=== PATIENT | female | born 1965 | race Hispanic/Latino ===

== ENCOUNTER 2020-02-23 17:29 | Inpatient (IN) | payer OTHER, SELFPAY ==
[~2020-02-23] VITALS: Ht 154.9 cm; Wt 78.6 kg
[2020-02-23 18:23] LABS: BASOPHILS % (AUTO) 0.2 % (0.0-5.0); HEMATOCRIT 36.6 % (36-48); LYMPHOCYTES % (AUTO) 16.7 % (21.0-51.0); MEAN CORPUSCULAR HEMOGLOBIN 18.2 pg (27.0-33.0); MEAN CORPUSCULAR HGB CONC 31.4 g/dL (32.0-36.0); MEAN CORPUSCULAR VOLUME 57.8 fL (79-99); MONOCYTES % (AUTO) 6.6 % (3.0-13.0); NEUTROPHILS % (AUTO) 75.6 % (40.0-77.0); NUCLEATED RED BLOOD CELLS 0.3 % (0.0-0.19); PLATELET COUNT (AUTO) 170 K/uL (130-400); RED BLOOD CELL COUNT(AUTO) 6.33 MIL/uL (4.00-5.50); WHITE BLOOD COUNT (AUTO) 10.1 K/uL (4.8-10.8)
[2020-02-23] MEDS ORDERED: ACETAMINOPHEN EXTRA STRENGTH 500 MG TABLET ONE (18:23)
[2020-02-23] MEDS ORDERED: ASPIRIN 325 MG TABLET ONE (18:23)
[2020-02-23 18:31] LABS: INR 1.08 (0.85-1.15); PARTIAL THROMBOPLASTIN TIME 31.3 SEC (26.3-35.5); PROTHROMBIN TIME 11.6 SEC (9.6-11.6)
[2020-02-23 18:45] LABS: ALBUMIN 2.9 g/dL (3.5-5.0); BILIRUBIN,TOTAL 0.8 mg/dL (0.2-1.0); CREATININE 0.9 mg/dL (0.5-1.5); CRP QUANTITATIVE 176.2 mg/L (0.00-9.0); TOTAL PROTEIN, SERUM 8.2 g/dL (6.0-8.3)
[2020-02-23 18:47] LABS: POTASSIUM 2.9 mmol/L (3.5-5.1)
[2020-02-23] MEDS ORDERED: AZITHROMYCIN 500MG+NS 250ML 250 ML IV ONE ×2 (18:51→18:56)
[2020-02-23 18:56] LABS: B-TYPE NATRIURETIC PEPTIDE 15 pg/mL (0-100)
[2020-02-23 19:05] LABS: FERRITIN 355 ng/mL (15-150)
[2020-02-23] MEDS ORDERED: CEFTRIAXONE SODIUM 1 GM ONE (19:35)
[2020-02-23] MEDS ORDERED: POTASSIUM BICARB/CIT AC 25 MEQ TABLET.EFF ONE (19:35)
[2020-02-23] MEDS ORDERED: INSULIN HUMULIN R 100 UNIT/ML 3ML ONE (19:37)
[2020-02-23] MEDS: SODIUM CHLORIDE 0.9% 1000ML 1,000 ML IV SCH (20:20)
[2020-02-23] MEDS: AZITHROMYCIN 500MG+NS 250ML 250 ML IV SCH (20:30)
[2020-02-23] MEDS ORDERED: POTASSIUM CHLORIDE 10MEQ/100ML 100 ML IV PRN (20:30)
[2020-02-23] MEDS ORDERED: POTASSIUM CHLORIDE 10% ELIXIR 20 MEQ/15 ML UDCUP PO PRN (20:30)
[2020-02-23] MEDS ORDERED: ALBUTEROL INHALER 90MCG/INH IH PRN (20:30)
[2020-02-23] MEDS ORDERED: LIDOCAINE HCL-MPF 1% 2ML VIAL IV PRN (20:30)
[2020-02-23] MEDS ORDERED: LACTULOSE 20 GM/30 ML UDCUP PO PRN (20:30)
[2020-02-23] MEDS ORDERED: MORPHINE SULFATE 2 MG/ML 1ML SYG IV PRN (20:30)
[2020-02-23] MEDS ORDERED: ACETAMINOPHEN 325 MG TAB PO PRN ×2 (20:30)
[2020-02-23] MEDS ORDERED: HYDRALAZINE HCL 20 MG/ML VIAL IV PRN (20:30)
[2020-02-23] MEDS: CEFTRIAXONE SODIUM 1 GM IV SCH (20:30)
[2020-02-23] MEDS ORDERED: ONDANSETRON HCL 4 MG/2 ML VIAL IV PRN (20:30)
[2020-02-23 20:51] LABS: HEMOGLOBIN A1C 11.2 % (4.0-6.0)
[2020-02-23] MEDS: FAMOTIDINE 20MG TAB 20 MG TAB PO SCH (21:00)
[2020-02-23] MEDS ORDERED: IOHEXOL-350 75 ML VIAL IV ONE (21:11)
[2020-02-23] MEDS ORDERED: ENOXAPARIN SODIUM 40 MG/0.4 ML SYRINGE SQ ONE (22:31)
[2020-02-23 23:27] LABS: APPEARANCE,URINE Clear (CLEAR); BILIRUBIN,URINE Negative (NEGATIVE); COLOR,URINE Yellow (YELLOW); GLUCOSE, URINE (UA) >=1000 mg/dL (NEGATIVE); KETONES,URINE 15 mg/dL (NEGATIVE); LEUKOCYTE ESTERASE ,URINE Negative (NEGATIVE); NITRATE,URINE Negative (NEGATIVE); OCCULT BLOOD,URINE Trace (NEGATIVE); PH,URINE 6.5 (5.0-8.0); PROTEIN,URINE POS 1+ mg/dL (NEGATIVE)
[2020-02-23 23:37] LABS: BACTERIA,URINE Few /HPF (None Seen)
[2020-02-24] MEDS ORDERED: POTASSIUM CHLORIDE 10MEQ/100ML 100 ML IV ONE (03:30)
[2020-02-24] MEDS ORDERED: LIDOCAINE HCL 1% 20 ML VIAL ONE (03:30)
[2020-02-24] MEDS ORDERED: ACETAMINOPHEN 325 MG TAB ONE (04:06)
[2020-02-24 04:18] LABS: BASOPHILS % (AUTO) 0.2 % (0.0-5.0); EOSINOPHILS % (AUTO) 0.2 % (0.0-8.0); HEMATOCRIT 36.7 % (36-48); LYMPHOCYTES % (AUTO) 11.7 % (21.0-51.0); MEAN CORPUSCULAR HGB CONC 30.8 g/dL (32.0-36.0); MEAN CORPUSCULAR VOLUME 58.5 fL (79-99); MONOCYTES % (AUTO) 4.6 % (3.0-13.0); NEUTROPHILS % (AUTO) 82.7 % (40.0-77.0); PLATELET COUNT (AUTO) 149 K/uL (130-400); RED BLOOD CELL COUNT(AUTO) 6.27 MIL/uL (4.00-5.50); RED CELL DISTRIBUTION WIDTH 17.1 % (11.0-15.5); WHITE BLOOD COUNT (AUTO) 8.2 K/uL (4.8-10.8)
[2020-02-24 04:52] LABS: CREATININE 0.8 mg/dL (0.5-1.5); CRP QUANTITATIVE 167.3 mg/L (0.00-9.0); MAGNESIUM 2.4 mg/dL (1.80-2.40); POTASSIUM 3.1 mmol/L (3.5-5.1)
[2020-02-24 06:45] VITALS: BP 120/68
--- NOTE | 2020-02-24 06:45 | NUR ---
PT ARRIVED AT ROOM 220 VIA STRETCHER WITH TIERNEY LAZARO. PT WALKED TO BED. PT DENIES ANY PAIN. BE TO LOWEST LEVEL. CALL LIGHT WITHIN REACH. NO COUGH NOTED. AFEBRILE. ON ROOM AIR. PT STATED SHE DID NOT GET TESTED FOR COVID AT [facility]. PT DOES NOT REMEMBER DOCTORS NAME FROM [facility]. PT HAS NO PRIMARY PHYSICIAN, NO HOME MEDS, NO SURGICAL HISTORY, NO MEDICAL HISTORY.
[2020-02-24] MEDS ORDERED: INSULIN HUMULIN R 100 UNIT/ML 3ML SQ SCH (07:30)
[2020-02-24 08:46] VITALS: BP 116/62
[2020-02-24] MEDS: FAMOTIDINE 20MG TAB 20 MG TAB PO SCH ×2 (10:16→21:06)
[2020-02-24] MEDS: ENOXAPARIN SODIUM 40 MG/0.4 ML SYRINGE SQ SCH (10:17)
[2020-02-24] MEDS: INSULIN LISPRO 100 UNIT/ML 3ML SQ SCH ×5 (12:29→22:26)
[2020-02-24] MEDS: SODIUM CHLORIDE 0.9% 1000ML 1,000 ML IV SCH ×2 (12:31→16:20)
--- NOTE | 2020-02-24 12:59 | NUR ---
DC PLAN CALLED PATIENT ROOM. NO ANSWER. NO ADDITIONAL CONTACTS ON FACE SHEET. ASHLIE WILL CONTINUE TO FOLLOW. Addendum: 02/24/20 at 1301 by MICKIE SCHWARTZ RN CM Amended: Links added.
[2020-02-24 13:22] VITALS: BP 118/59
--- NOTE | 2020-02-24 13:32 | NUR ---
NUTRITION EDUCATION RD provided Diabetes Nutrition education via Phone conversation due to isolation protocol. RD discussed nutrition recommendations with Pt. Pt verbalized understanding. Nutrition education placed in Pt chart, RN notified. Addendum: 02/24/20 at [address] RD Amended: Links added.
--- NOTE | 2020-02-24 13:45 | NUR ---
RD NOTIFICATION Pt admitted with suspected COVID-19. RD notified for new onset Diabetes. Pt contacted via phone. Tolerating 75gm CCD with no report of GI distress, fair PO intake. Pt with Obesity Class I (BMI 32.7). Recommend continue 75gm CCD Recommend 30mL ProMod BID RD provided nutrition education via phone. Handouts placed in Pt chart. RN notified. RD to continue to monitor. Please notify as additional nutrition concerns arise. Thank you. Addendum: 02/24/20 at [address] RD Amended: Links added.
[2020-02-24] MEDS: POTASSIUM CHLORIDE 20 MEQ ERTAB PO PRN ×2 (13:50→21:07)
[2020-02-24 15:44] LABS: CREATININE 0.7 mg/dL (0.5-1.5)
[2020-02-24 15:49] LABS: POTASSIUM 2.9 mmol/L (3.5-5.1)
[2020-02-24 16:30] VITALS: BP 122/64
[2020-02-24] MEDS ORDERED: POTASSIUM CHLORIDE 20MEQ/100ML 100 ML IV ONE (18:03)
[2020-02-24 20:18] VITALS: BP 118/60
--- NOTE | 2020-02-24 21:00 | NUR ---
PT SHOWERED. POTASSIUM REPLACEMENT GIVEN. NO DISTRESS NOTED. AMBULATORY. STATES SHE WANTS TO GO HOME.ABLE TO TAKE MEDICATIONS WELL.
[2020-02-24] MEDS: CEFTRIAXONE SODIUM 1 GM IV SCH (21:07)
[2020-02-24] MEDS: AZITHROMYCIN 500MG+NS 250ML 250 ML IV SCH (21:08)
[2020-02-24] MEDS: INSULIN GLARGINE 100 UNITS/ML 10 ML VIAL SQ SCH (22:25)
[2020-02-24 23:54] VITALS: BP 104/57
[2020-02-25] MEDS: SODIUM CHLORIDE 0.9% 1000ML 1,000 ML IV SCH ×3 (02:20→21:41)
[2020-02-25 05:10] VITALS: BP 111/44
[2020-02-25 05:37] LABS: BASOPHILS % (AUTO) 0.3 % (0.0-5.0); EOSINOPHILS % (AUTO) 0.8 % (0.0-8.0); MEAN CORPUSCULAR HEMOGLOBIN 17.9 pg (27.0-33.0); MEAN CORPUSCULAR HGB CONC 30.3 g/dL (32.0-36.0); MONOCYTES % (AUTO) 7.1 % (3.0-13.0); NEUTROPHILS % (AUTO) 60.1 % (40.0-77.0); PLATELET COUNT (AUTO) 187 K/uL (130-400); RED BLOOD CELL COUNT(AUTO) 5.42 MIL/uL (4.00-5.50); RED CELL DISTRIBUTION WIDTH 15.8 % (11.0-15.5); WHITE BLOOD COUNT (AUTO) 7.4 K/uL (4.8-10.8)
[2020-02-25 06:01] LABS: CREATININE 0.7 mg/dL (0.5-1.5); CRP QUANTITATIVE 119.7 mg/L (0.00-9.0)
[2020-02-25 06:07] LABS: POTASSIUM 2.7 mmol/L (3.5-5.1)
[2020-02-25] MEDS: INSULIN LISPRO 100 UNIT/ML 3ML SQ SCH ×5 (06:13→21:32)
--- NOTE | 2020-02-25 06:41 | NUR ---
NOTIFIED DR. VARGAS OF ELEVATED D-DIMER OF 2042. NO NEW ORDERS. D-DIMER WAS LOWER THAN PREVIOUS LEVEL. PT STABLE AT THIS TIME.
[2020-02-25 08:30] VITALS: BP 119/61
[2020-02-25] MEDS ORDERED: POTASSIUM CHLORIDE 20 MEQ ERTAB PO SCH (08:30)
[2020-02-25] MEDS: FAMOTIDINE 20MG TAB 20 MG TAB PO SCH ×2 (09:12→19:42)
[2020-02-25] MEDS: ENOXAPARIN SODIUM 40 MG/0.4 ML SYRINGE SQ SCH (09:13)
[2020-02-25] MEDS: GLIPIZIDE 5 MG TABLET PO SCH ×2 (09:57→18:18)
--- NOTE | 2020-02-25 10:57 | NUR ---
DC PLAN PATIENT IN COVID UNIT. CALLED PHONE. PATIENT SEEMED DISTRACTED. DIFFICULT TO GET INFO FROM. HAD TO LOOK UP ADDRESS. [id number] [place] [address]. COULD NOT REMEMBER PRIMARY MD INFO. DID NOT GIVE ALTERNATE CONTACT INFO. SAID NO SERVICES OR DME'S. FELT SAFE TO RETURN HOME. Addendum: 02/25/20 at 1103 by MICKIE SCHWARTZ RN CM Amended: Links added.
[2020-02-25] MEDS: METFORMIN HCL 500 MG TABLET PO SCH ×2 (12:35→18:16)
[2020-02-25] MEDS: POTASSIUM CHLORIDE 20 MEQ ERTAB PO SCH (12:36)
[2020-02-25 13:47] VITALS: BP 110/61
--- NOTE | 2020-02-25 15:51 | NUR ---
FOLLOW UP Pt with 75gm CC diet order. No report of GI distress. Pt continues with Poor appetite. 30mL ProMod (Protein supplementation) in place. Pt with Class I obesity (BMI 32.9). No recent weight loss. No physical sign malnutrition. Recommend Glucerna BID for nutritional supplementation Recommend monitor weight RD to continue to monitor PO status, nutritional labs, weight. Please notify as additional nutrition concerns arise. Thank you. Addendum: 02/25/20 at [address] RD Amended: Links added.
[2020-02-25 16:30] VITALS: BP 129/65
[2020-02-25] MEDS: AZITHROMYCIN 500MG+NS 250ML 250 ML IV SCH (19:42)
[2020-02-25] MEDS: CEFTRIAXONE SODIUM 1 GM IV SCH (19:42)
[2020-02-25 20:32] VITALS: BP 118/62
[2020-02-25] MEDS: INSULIN GLARGINE 100 UNITS/ML 10 ML VIAL SQ SCH (21:32)
[2020-02-26 00:05] VITALS: BP 142/58
[2020-02-26 04:41] VITALS: BP 102/56
[2020-02-26 04:53] LABS: BASOPHILS % (AUTO) 0.4 % (0.0-5.0); EOSINOPHILS % (AUTO) 1.7 % (0.0-8.0); HEMATOCRIT 31.7 % (36-48); LYMPHOCYTES % (AUTO) 34.4 % (21.0-51.0); MEAN CORPUSCULAR HEMOGLOBIN 17.9 pg (27.0-33.0); MEAN CORPUSCULAR HGB CONC 30.3 g/dL (32.0-36.0); MEAN CORPUSCULAR VOLUME 59.1 fL (79-99); MONOCYTES % (AUTO) 7.5 % (3.0-13.0); NEUTROPHILS % (AUTO) 55.3 % (40.0-77.0); NUCLEATED RED BLOOD CELLS 0.4 % (0.0-0.19); PLATELET COUNT (AUTO) 282 K/uL (130-400); RED BLOOD CELL COUNT(AUTO) 5.36 MIL/uL (4.00-5.50); WHITE BLOOD COUNT (AUTO) 8.2 K/uL (4.8-10.8)
[2020-02-26 05:18] LABS: ALBUMIN 2.3 g/dL (3.5-5.0); CREATININE 0.6 mg/dL (0.5-1.5); CRP QUANTITATIVE 66.6 mg/L (0.00-9.0); MAGNESIUM 2.4 mg/dL (1.80-2.40); PHOSPHORUS 3.8 mg/dL (2.5-4.9); POTASSIUM 3.3 mmol/L (3.5-5.1)
[2020-02-26] MEDS: INSULIN LISPRO 100 UNIT/ML 3ML SQ SCH ×3 (05:34→17:22)
[2020-02-26] MEDS ORDERED: POTASSIUM CHLORIDE 20 MEQ ERTAB PO SCH ×2 (05:45→11:00)
--- NOTE | 2020-02-26 05:52 | NUR ---
ORDER FOR POTASSIUM 40MEQ X1 DOSE. AJ CONTINUOUS PROCESS MACHINE OPERATOR. AWARE OF PT'S CONTINUOUS LOW POTASSIUM LEVELS. MAG IS NORMAL.
[2020-02-26] MEDS: GLIPIZIDE 5 MG TABLET PO SCH ×2 (06:00→17:21)
[2020-02-26 09:30] VITALS: BP 122/72
[2020-02-26] MEDS: FAMOTIDINE 20MG TAB 20 MG TAB PO SCH (09:33)
[2020-02-26] MEDS: METFORMIN HCL 500 MG TABLET PO SCH ×3 (09:33→17:20)
[2020-02-26] MEDS: SODIUM CHLORIDE 0.9% 1000ML 1,000 ML IV SCH (09:34)
[2020-02-26] MEDS: ENOXAPARIN SODIUM 40 MG/0.4 ML SYRINGE SQ SCH (09:34)
[2020-02-26] MEDS: POTASSIUM CHLORIDE 20 MEQ ERTAB PO SCH (11:22)
[2020-02-26 11:48] VITALS: BP 118/70
[2020-02-26] MEDS ORDERED: METF-446 PO (13:49)
[2020-02-26] MEDS ORDERED: LEVO500T2 PO (13:49)
[2020-02-26] MEDS ORDERED: GLIP5TAB11 PO (13:49)
[2020-02-26 17:05] VITALS: BP 118/49
[2020-02-26] MEDS ORDERED: CEPH500C2 PO (17:47)
[2020-02-26] MEDS ORDERED: PROM118S5 PO (17:47)
--- NOTE | 2020-02-26 18:35 | NUR ---
HL REMOVED, CATHETER INTACT. DISCHARGE INSTRUCTIONS GIVEN , VERBALIZED UNDERSTANDING.
== END 2020-02-26 19:20 | disposition home or self-care (01) | DRG 871 ==
LOC: EDH 17:29 → EDHIP 20:20 → 2DH 02-24 05:59
PROVIDERS: ADMIT Internal Medicine; ATTEND Internal Medicine
DX: A41.89 Other specified sepsis (principal); J12.0 Adenoviral pneumonia; J96.01 Acute respiratory failure with hypoxia; E87.2 Acidosis; E87.1 Hypo-osmolality and hyponatremia; E11.9 Type 2 diabetes mellitus without complications; E86.0 Dehydration; E87.6 Hypokalemia; E66.9 Obesity, unspecified; Z68.32 Body mass index [BMI] 32.0-32.9, adult
CPT/HCPCS: 36415; 71045; 71275; 80048; 80053; 80061; 81001; 82010; 82040; 82550; 82728; 82948; 83036; 83605; 83615; 83735; 83880; 84100; 84145; 84484; 85025; 85378; 85610; 85730; 86140; 87040; 87633; 87635; 87804; 93005; 93970; G0378; J0456; J0696; J1650; J1815; J3480; J3490; J7030; Q9967